=== PATIENT | female | born 1945 | race Caucasian/White ===

== ENCOUNTER 2018-01-09 13:13 | Emergency (ER) | payer MEDICARE, BC ==
[2018-01-09] MEDS: diazePAM 5 MG TABLET PO (14:15)
[2018-01-09] MEDS: fentaNYL PF VIAL 100 MCG/2 ML VIAL IM (14:16)
[2018-01-09] MEDS: NAPROXEN 500 MG TABLET PO (14:16)
[2018-01-09 14:18] LABS: BILIRUBIN,URINE NEGATIVE (NEG); CLARITY,URINE CLEAR; COLOR,URINE YELLOW; GLUCOSE,URINE NEGATIVE (NEG); NITRITE,URINE NEGATIVE (NEG); PH,URINE 5.5; PROTEIN,URINE NEGATIVE (NEG-TRACE)
[2018-01-09 14:58] LABS: BACTERIA,URINE 0 /HPF (0-FEW); HYALINE CASTS, URINE FEW /HPF; RBC,URINE 0 /HPF (0-2); SQUAMOUS EPITHELIAL CELL,UR FEW /LPF; WBC,URINE OCC /HPF (0-4)
[2018-01-09] MEDS: ONDANSETRON ODT 4 MG TAB.RAPDIS. PO (15:18)
== END 2018-01-09 15:37 | disposition home or self-care (01) ==
LOC: ER 13:13
DX: S22.31XA Fracture of one rib, right side, initial encounter for closed fracture (principal); S30.0XXA Contusion of lower back and pelvis, initial encounter; S20.221A Contusion of right back wall of thorax, initial encounter; I25.10 Atherosclerotic heart disease of native coronary artery without angina pectoris; Z88.5 Allergy status to narcotic agent; W01.0XXA Fall on same level from slipping, tripping and stumbling without subsequent striking against object, initial encounter; Y93.89 Activity, other specified; Y99.8 Other external cause status; Y92.59 Other trade areas as the place of occurrence of the external cause
CPT/HCPCS: 72128; 72131; 81001; 96372; 99285-25; J3010; Q0162